=== PATIENT | female | born 1975 | race Caucasian/White ===

== ENCOUNTER 2020-04-15 00:25 | Emergency (ER) | payer OTHER ==
[~2020-04-15] VITALS: Ht 157.5 cm; Wt 63.5 kg
[~2020-04-15 00:25] MED LIST: HYDROCODONE-AP1 EAC6 PO; HYDROXYZINE HCL25 M1 PO; IBUPROFEN 800800 M1 PO; MELATONIN3 MG PO; ZOFRAN ODT4 MG DISSOLVE
[2020-04-15 01:12] LABS: HEMATOCRIT 40.5 % (37.0-47.0); HEMOGLOBIN 13.5 gm/dL (12.0-15.0); MCH 29.1 pg (26.0-34.0); MCHC 33.3 g/dL (28.0-37.0); MCV 87.3 fL (80.0-100.0); MPV 7.3 fl. (7.2-11.1); RBC 4.63 mil/uL (4.20-5.00); RDW-CV 16.4 % (10.5-14.5); WBC 13.9 thou/uL (4.0-11.0)
[2020-04-15 01:20] LABS: CALCIUM 8.9 mg/dL (8.5-10.1); CREATININE 0.8 mg/dL (0.6-1.3); POTASSIUM 3.4 mmol/L (3.5-5.1)
[2020-04-15 01:25] LABS: ALBUMIN 3.6 g/dL (3.4-5.0); TOTAL BILIRUBIN 0.2 mg/dL (<0.1-1.0); TOTAL PROTEIN 7.7 g/dL (6.4-8.2)
[2020-04-15 01:29] LABS: ALCOHOL < 10 mg/dL (<10); SALICYLATE < 2.8 mg/dL (2.8-20.0)
[2020-04-15 01:31] LABS: ACETAMINOPHEN < 2 ug/mL (10-30)
[2020-04-15 03:37] LABS: URINE BILIRUBIN NEGATIVE (Negative); URINE BLOOD NEGATIVE (Negative); URINE CLARITY CLEAR; URINE COLOR YELLOW; URINE GLUCOSE-RANDOM NEGATIVE (Negative); URINE KETONES NEGATIVE (Negative); URINE LEUKOCYTES NEGATIVE (Negative); URINE NITRITE NEGATIVE (Negative); URINE PROTEIN NEGATIVE (Negative); URINE SPECIFIC GRAVITY 1.015 (1.005-1.030); URINE UROBILINOGEN 0.2 E.U./dl (0.2-1.0)
[2020-04-15 03:44] LABS: AMP/METHAMP Negative (Negative); BARBITURATES Negative (Negative); BENZODIAZEPINES Negative (Negative); COCAINE Negative (Negative); METHADONE Negative (Negative); OPIATES Negative (Negative); PCP Negative (Negative); THC Negative (Negative)
[2020-04-15] MEDS ORDERED: XANAX 0.5 MG0.5 M1 PO (05:51)
[2020-04-15 06:10] VITALS: BP 110/63
== END 2020-04-15 06:10 | disposition home or self-care (01) ==
LOC: M.ERS 00:25
PROVIDERS: Personal Emergency Response Attendant
DX: F43.0 Acute stress reaction (principal); R47.01 Aphasia; Z87.442 Personal history of urinary calculi; Z88.6 Allergy status to analgesic agent